=== PATIENT | female | born 1985 | race Caucasian/White ===

== ENCOUNTER 2016-10-03 11:03 | Emergency (ER) | payer OTHER ==
[2016-10-03 11:26] LABS: BASOPHIL 0.5 % (0-2); EOSINOPHIL 0.2 % (0-5); HCT 39.9 % (37.0-47.0); HGB 13.8 g/dl (12.5-16.0); LYMPHOCYTE 12.6 % (15-48); MCH 29.4 pg (25.0-31.0); MCHC 34.6 g/dL (32.0-36.0); MCV 85.1 fL (78.0-100.0); MONOCYTE 14.9 % (0-12); MPV 10.4 fL (6.0-9.5); NEUTROPHIL 71.8 % (41-80); PLT 227 K/uL (150-400); RBC 4.69 M/uL (4.20-5.40); RDW 12.7 % (11.5-14.0); WBC 4.4 K/uL (4.0-10.5)
[2016-10-03 11:27] LABS: BILIRUBIN 1+ mg/dL (NEGATIVE); BLOOD NEGATIVE Ery/uL (NEGATIVE); CLARITY CLEAR (CLEAR); COLOR YELLOW (YELLOW); GLUCOSE (U) NORMAL (NORMAL); KETONE (U) 1+ (SMALL) mg/dL (NEGATIVE); LEUKOCYTES NEGATIVE Leu/uL (NEGATIVE); NITRITE NEGATIVE (NEGATIVE); PROTEIN TRACE (LOW) mg/dL (NEGATIVE); SPECIFIC GRAVITY 1.025 (1.001-1.030); UROBILINOGEN 0.2 mg/dL (0.2-1.0)
[2016-10-03 11:51] LABS: ALBUMIN 4.1 g/dL (3.5-5.0); BILIRUBIN - TOTAL 0.3 mg/dL (0.1-1.0); CREATININE 0.9 mg/dL (0.5-1.0); GLOBULIN (CALCULATION) 3.1 g/dL (2.2-4.2); POTASSIUM 3.5 mmol/L (3.5-5.1); TOTAL PROTEIN 7.2 g/dL (6.4-8.3)
[2016-10-03 11:52] LABS: BACTERIA 3+; SQUAMOUS EPITHELIAL CELLS >50
== END 2016-10-03 14:26 | disposition home or self-care (01) ==
LOC: FER 11:03
PROVIDERS: Emergency Medicine
DX: G43.909 Migraine, unspecified, not intractable, without status migrainosus (principal); J11.1 Influenza due to unidentified influenza virus with other respiratory manifestations; N39.0 Urinary tract infection, site not specified; Z88.0 Allergy status to penicillin
CPT/HCPCS: 36415; 70450; 80053; 81001; 82150; 83690; 85025; 87804; 87899; J1956; J2405; J2765; J2930

== ENCOUNTER 2016-10-10 14:10 | Emergency (ER) | payer OTHER ==
[2016-10-10 14:50] LABS: BASOPHIL 0.5 % (0-2); EOSINOPHIL 0.5 % (0-5); HCT 40.1 % (37.0-47.0); HGB 13.8 g/dl (12.5-16.0); LYMPHOCYTE 20.6 % (15-48); MCH 29.2 pg (25.0-31.0); MCHC 34.4 g/dL (32.0-36.0); MONOCYTE 7.7 % (0-12); MPV 10.1 fL (6.0-9.5); NEUTROPHIL 70.7 % (41-80); PLT 352 K/uL (150-400); RBC 4.72 M/uL (4.20-5.40); RDW 12.5 % (11.5-14.0); WBC 6.5 K/uL (4.0-10.5)
[2016-10-10 14:52] LABS: BILIRUBIN NEGATIVE (NEGATIVE); BLOOD TRACE-INTACT Ery/uL (NEGATIVE); CLARITY CLEAR (CLEAR); COLOR YELLOW (YELLOW); GLUCOSE (U) NORMAL (NORMAL); KETONE (U) NEGATIVE (NEGATIVE); LEUKOCYTES TRACE Leu/uL (NEGATIVE); NITRITE NEGATIVE (NEGATIVE); PROTEIN NEGATIVE (NEGATIVE); UROBILINOGEN 0.2 mg/dL (0.2-1.0); pH 5.5 (5.0-9.0)
[2016-10-10 15:05] LABS: ALBUMIN 4.7 g/dL (3.5-5.0); BILIRUBIN - TOTAL 0.4 mg/dL (0.1-1.0); CREATININE 0.6 mg/dL (0.5-1.0); GLOBULIN (CALCULATION) 2.7 g/dL (2.2-4.2); POTASSIUM 4.1 mmol/L (3.5-5.1); TOTAL PROTEIN 7.4 g/dL (6.4-8.3)
[2016-10-10 15:24] LABS: URINARY RBC RARE
[2016-10-10 15:25] LABS: BACTERIA 2+
== END 2016-10-10 17:03 | disposition home or self-care (01) ==
LOC: FER 14:10
PROVIDERS: Emergency Medicine
DX: N30.90 Cystitis, unspecified without hematuria (principal); K59.00 Constipation, unspecified; Z88.0 Allergy status to penicillin; Z90.49 Acquired absence of other specified parts of digestive tract; Z98.890 Other specified postprocedural states
CPT/HCPCS: 36415; 80053; 81001; 82150; 83690; 84703; 85025